=== PATIENT | male | born 1930 | race Caucasian/White ===

== ENCOUNTER 2017-03-17 17:24 | Inpatient (IN) | payer OTHER ==
[~2017-03-17] VITALS: Ht 177.8 cm; Wt 84.4 kg
--- NOTE | ~2017-03-17 | EKG ---
[address] [address] ELECTROCARDIOGRAM REPORT Name: CORINNE MENDEZ Room #: 438-P ADM IN M.R.#: [id number] Admission: 03/17/17 Attend Phys: Joshua Casey MD Discharge: Date of : [birth year] Report #: [id number] THIS REPORT FOR: //name// [facility] ED Test Date: 2017-03-17 Test Time: 18:48:23 Pat Name: CORINNE MENDEZ Department: Room: [facility] Gender: M Auditor/Quality: Jossue CHA : 1930 Requested By: Hola Allen Order Number: [id number] MD: Remigio Lazcano Measurements Intervals [place] Rate: 76 P: DC: QRS: 92 QRSD: 105 T: 2 QT: 415 QTc: 467 Interpretive Statements Atrial fibrillation Left posterior fascicular block Borderline low voltage, extremity leads Compared to ECG 07/03/2014 14:18:12 Left posterior fascicular block now present Right-axis deviation no longer present Electronically Signed On 03-20-2017 22:04:34 CDT by Remigio Lazcano [email or web address] <ELECTRONICALLY SIGNED> By: Remigio Lazcano MD 03/20/17 2204 47 47 Remigio Lazcano MD /EPI
--- NOTE | ~2017-03-17 | S ---
[facility] [place] [address] SURGICAL PATH RPT PROCEDURE Name: CORINNE MENDEZ Room #: 438-P DIS IN M.R.#: [id number] Admission: 03/17/17 Date of : [birth year] Discharge: 03/21/17 Report #: [id number] Path Case #: [id number] PATHOLOGY REPORT COLLECTION DATE: 03/19/2017 RECEIVED DATE: 03/21/2017 SUBMITTING PHYS: Dr. Foster Rajput OTHER PHYS: Dr. Joshua Mroales SPECIMEN(S) RECEIVED: A.Bx gastritis * * * * * * * * * * * * FINAL DIAGNOSIS: Gastric mucosa, gastritis, endoscopic biopsy: - Mild chronic active gastritis with features of reactive gastropathy. - Negative for intestinal metaplasia or atrophy. - Negative for Helicobacter pylori. COMMENT: Helicobacter pylori immunohistochemical stain performed on block A1-negative. (IUV:mml; 03/22/2017) PATHOLOGIST: Maribel Blandon M.D. REPORT ELECTRONICALLY SIGNED BY: Maribel Blandon M.D. DATE/TIME: 03/22/2017 14:59 * * * * * * * * * * * * GROSS PATHOLOGY: Received in formalin labeled "BERNARDO Kumar gastritis," and additionally labeled on the requisition as "R/O H. pylori", are two segments of cohen soft tissue measuring 0.8 x 0.8 x 0.4 cm in aggregate dimensions and ranging from 0.8 to 1.3 cm in maximum dimension. The specimen is submitted entirely in cassette A1. (TSD; 03/21/2017) CLINICAL HISTORY: Hernia, GI bleed INITIAL CPT CODE(S): A; 11739, 29177 [facility] [address] [place] [address] SURGICAL PATH RPT PROCEDURE Name: CORINNE MENDEZ Room #: 438-P [facility] IN ..#: [id number] Admission: 03/17/17 Date of : [birth year] Discharge: 03/21/17 Report #: [id number] Path Case #: [id number] Professional services performed by [facility] at [address], [place] [address] Technical services performed by [facility] at [address] [place] [address], [place] [address]. [facility] [address] [place] [address] PHONE: [phone] DIRECTOR: Nick Lange M.D. * * * END OF REPORT * * *
--- NOTE | ~2017-03-17 | P ---
[facility] [place] [address] PROCEDURE REPORT Name: JOIJOLENECORINNE Room #: 438-P [facility] IN ..#: [id number] Admission: 03/17/17 Attend Phys: Joshua Casey MD Discharge: 03/21/17 Date of : [birth year] Report #: [id number] THIS REPORT FOR: //name// CC: Tammy Casey BRIEF HISTORY: The patient is an 86-year-old male who presented with melanotic stools and anemia requiring transfusion. He had been having black stools for about 6 weeks. PREOPERATIVE DIAGNOSIS: Upper gastrointestinal bleeding. POSTOPERATIVE DIAGNOSES: 1. 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 2. Small hiatus hernia. 3. Diffuse erythematous gastritis. MEDICATIONS: Deep sedation with propofol per anesthesia. SPECIMEN: Biopsies of antrum, rule out H. pylori. ESTIMATED BLOOD LOSS: 3 mL related to procedure. PROCEDURE: EGD with hemostasis and biopsy. FINDINGS: Prior to propofol sedation, procedure of upper endoscopy discussed with the patient as well as potential risks and its complications. He indicates he understands and desires to proceed. DESCRIPTION OF PROCEDURE: With the patient in left lateral decubitus position, the Fuji video endoscope was inserted in the cervical esophagus under direct vision without difficulty. Examination of this organ through its entire length revealed normal esophageal mucosa down the squamocolumnar junction. Squamocolumnar junction was normal. Just beyond that was a small, about 2-3 cm sliding type hiatus hernia. Mucosa in the hernia was normal. Scope was advanced in the stomach, was examined on end view as well as retroflexed views. There was a moderately large dark looking clot high in the fundus of the stomach. There was also some bloody liquidy material. The stomach mucosa was coated with a patchy layer of red blood. However, no clots were seen. Exposed vessels or spreading vessels were not seen when the stomach was examined on end view as well as retroflexed views. The scope was advanced in the distal stomach and again, it was coated with blood. Active bleeding was not seen. The pylorus is unremarkable. Duodenal bulb and immediate postbulbar duodenum was covered with red blood. We then irrigated the duodenal bulb and postbulbar duodenum. The blood cleared away and no mucosal lesions were seen. The mucosa was normal. We withdrew the scope back in the stomach and then underwent a tedious process [address] [address] PROCEDURE REPORT Name: CORINNE MENDEZ Room #: 438-P [id number] Admission: 03/17/17 Attend Phys: Joshua Casey MD Discharge: 03/21/17 Date of : [birth year] Report #: [id number] of washing the gastric mucosa with water jet and suctioning away water. The clot in the fundus of stomach got a little bit smaller, it was too large to aspirate through the scope. Finally, in the retroflexed position, we saw an oozing lesion in the fundus of the stomach that was best seen in the retroflexed position. This was treated with BICAP probe and immediately, the bleeding stopped. On the opposite wall, there was a red thick adherent clot, it was about 5 or 6 mm, but it was fairly prominent. Active bleeding was not seen. It was felt that this clot was over another lesion and this area was cauterized as well with good hemostasis. We then inspected the stomach and duodenum further pass and no additional bleeding sites were seen. Biopsies obtained of the antrum and scope withdrawn. The patient tolerated the procedure well. DISPOSITION: The patient with upper GI bleeding. Active site was seen. I am suspicious that he potentially had additional sites. He has a loud heart murmur, may have vascular ectasias. I did not see a definite ectatic vessel, but presumed that was the etiology of his oozing today. We will continue PPI. We will also add sucralfate for his gastritis. Advance diet to clear liquids. Ideally, withhold anticoagulation for several days if possible. <ELECTRONICALLY SIGNED> By: Foster Rajput MD 03/22/17 1547 0952 1233 Foster Rajput MD /nt
[~2017-03-17 17:24] MED LIST: ASPIR-TRIN325 MG PO; ASPIRIN EC325 M1 PO; ATENOLOL 50MG T50 M1 PO; B12 PO; CALCIUM 600 +1 EAC5 PO; CALCIUM 600 +1 EAC8 PO; CALCIUM 600 +1 EAC9 PO; CHELATED IRON PO; CIPRO500 MG PO; COLACE100 MG PO; COUMADIN 2 MG TA2 M1 PO; COUMADIN 2.5MG2.5 M1 PO; COUMADIN 4 MG TA4 M1 PO; COUMADIN7.5 MG PO; ENOXAPARIN30 MG/0.1 SUBQ; ESZOPICLONE3 MG PO; FISH OIL 1,0001 EAC5; FISH OIL 1,0001 EAC5 PO; FISH OIL 1,001000 M2 PO; FLECAINIDE ACET50 M2 PO; FLOMAX0.4 MG PO; FLORASTOR250 MG PO; FLUMADINE100 MG; FOLIC ACID PO; GABAPENTIN 100100 MG PO; GLUCOSAMINE CH1 EAC7 PO; GLUCOSAMINE HC500 MG PO; IRON325; IRON325 PO; KEFLEX500 MG PO; LANSOPRAZOLE30 MG PO; LASIX 40 MG TAB40 M2 PO; LOPRESSOR PO; MAXFE CAPLET1 EACH PO; MELOXICAM15 MG PO; METOCLOPRAMIDE 55 M1 PO; MIRALAX255 GM PO; MOBIC15 MG PO; NORCO 5-325 TA1 EACH PO; POTASSIUM20 PO; PREVACID PO; REGLAN 10 MG TA10 MG PO; SIMVASTATIN20 MG PO; TOPROL XL50 MG PO; TRAMADOL 50 MG50 MG PO; TYLENOL325 MG PO; VITAMIN B-12500 MCG PO; VITAMIN D1000 UNI1 PO; VITAMIN D400 UNIT PO; VITAMIN E200 UNI4 PO; VITAMIN E400 UNIT PO; ZOCOR20 MG PO
[2017-03-17 17:45] VITALS: BP 124/51
[2017-03-17 18:25] LABS: BASOPHILS 0.8 % (0.0-2.0); HEMATOCRIT 22.9 % (42.0-52.0); HEMOGLOBIN 7.6 gm/dL (14.0-18.0); MCH 31.3 pg (26.0-34.0); MCHC 33.4 g/dL (28.0-37.0); MCV 93.9 fL (80.0-100.0); PLATELET COUNT 117 thou/uL (150-400); POLYS 73.2 % (36.0-66.0); RBC 2.44 mil/uL (4.50-6.00); RDW 16.4 % (10.5-14.5); WBC 5.5 thou/uL (4.0-11.0)
[2017-03-17 18:26] LABS: CALCIUM 8.4 mg/dL (8.5-10.1); CREATININE 1.1 mg/dL (0.7-1.3); MANUAL DIFF NO; POTASSIUM 3.8 mmol/L (3.5-5.1)
[2017-03-17 18:32] LABS: ALBUMIN 3.3 g/dL (3.4-5.0); APTT 33.7 Seconds (24.5-32.8); INR 2.4; PROTIME 24.6 Seconds (9.3-11.4); TOTAL BILIRUBIN 0.4 mg/dL (<0.1-1.0); TOTAL PROTEIN 6.6 g/dL (6.4-8.2)
[2017-03-17 19:52] VITALS: BP 114/56
[2017-03-17 20:09] VITALS: BP 114/56
[2017-03-17 20:23] VITALS: BP 107/49
[2017-03-17 20:45] VITALS: BP 103/69
[2017-03-18 00:23] LABS: HEMOGLOBIN 6.6 gm/dL (14.0-18.0)
[2017-03-18 00:30] LABS: HEMATOCRIT 19.4 % (42.0-52.0)
[2017-03-18 03:05] VITALS: BP 94/59; BP 96/41
[2017-03-18 06:06] LABS: HEMATOCRIT 21.7 % (42.0-52.0); HEMOGLOBIN 7.5 gm/dL (14.0-18.0)
[2017-03-18 06:15] VITALS: BP 105/42; BP 119/59
[2017-03-18 06:20] LABS: PROTIME 20.1 Seconds (9.3-11.4)
[2017-03-18 08:00] VITALS: BP 105/56
[2017-03-18 12:22] LABS: HEMATOCRIT 25.9 % (42.0-52.0); HEMOGLOBIN 8.9 gm/dL (14.0-18.0)
[2017-03-18 16:00] VITALS: BP 110/52
[2017-03-18 18:16] LABS: HEMATOCRIT 25.4 % (42.0-52.0); HEMOGLOBIN 8.6 gm/dL (14.0-18.0)
[2017-03-18 20:08] VITALS: BP 117/65
[2017-03-19 04:16] VITALS: BP 128/74
[2017-03-19 05:12] LABS: HEMATOCRIT 26.8 % (42.0-52.0); HEMOGLOBIN 9.2 gm/dL (14.0-18.0); MCH 31.7 pg (26.0-34.0); MCHC 34.4 g/dL (28.0-37.0); MCV 92.2 fL (80.0-100.0); RBC 2.91 mil/uL (4.50-6.00); RDW 15.5 % (10.5-14.5)
[2017-03-19 05:24] LABS: INR 1.2; PROTIME 12.3 Seconds (9.3-11.4)
[2017-03-19 05:33] LABS: CALCIUM 8.1 mg/dL (8.5-10.1); CREATININE 0.8 mg/dL (0.7-1.3); POTASSIUM 3.6 mmol/L (3.5-5.1); TOTAL PROTEIN 6.1 g/dL (6.4-8.2)
[2017-03-19 08:00] VITALS: BP 119/58
[2017-03-19 16:01] VITALS: BP 104/48
[2017-03-19 19:38] VITALS: BP 109/53
[2017-03-20 04:47] VITALS: BP 115/65
[2017-03-20 06:04] LABS: HEMATOCRIT 24.8 % (42.0-52.0); HEMOGLOBIN 8.5 gm/dL (14.0-18.0); MCH 31.8 pg (26.0-34.0); MCHC 34.1 g/dL (28.0-37.0); MCV 93.3 fL (80.0-100.0); RBC 2.66 mil/uL (4.50-6.00); RDW 16.3 % (10.5-14.5); WBC 5.6 thou/uL (4.0-11.0)
[2017-03-20 08:52] VITALS: BP 117/63
[2017-03-20 16:50] VITALS: BP 104/50
[2017-03-20 19:52] VITALS: BP 104/50
[2017-03-21 04:30] VITALS: BP 115/65
[2017-03-21 06:20] LABS: HEMATOCRIT 24.3 % (42.0-52.0); HEMOGLOBIN 8.1 gm/dL (14.0-18.0); MCH 31.3 pg (26.0-34.0); MCHC 33.5 g/dL (28.0-37.0); MCV 93.3 fL (80.0-100.0); RBC 2.6 mil/uL (4.50-6.00); RDW 15.7 % (10.5-14.5)
[2017-03-21 08:00] VITALS: BP 105/61
[2017-03-21] MEDS ORDERED: CARAFATE 1 GM TA1 G1 PO (12:07)
[2017-03-21] MEDS ORDERED: PROTONIX40 M1 PO (12:07)
[2017-03-21 12:27] VITALS: BP 105/61
== END 2017-03-21 14:12 | disposition home or self-care (01) | DRG 378 ==
LOC: ER 17:24 → EROBS 19:30 → 4S 19:30
PROVIDERS: Emergency Medicine; Internal Medicine Gastroenterology; Nurse Practitioner Acute Care; Specialist
PROC: 30233N1 Transfusion of Nonautologous Red Blood Cells into Peripheral Vein, Percutaneous Approach (ICD-10-PCS; 2017-03-18)
PROC: 0DB68ZX Excision of Stomach, Via Natural or Artificial Opening Endoscopic, Diagnostic (ICD-10-PCS; principal; 2017-03-19)
DX: K55.21 Angiodysplasia of colon with hemorrhage (principal); D62 Acute posthemorrhagic anemia; I10 Essential (primary) hypertension; N40.0 Benign prostatic hyperplasia without lower urinary tract symptoms; H91.90 Unspecified hearing loss, unspecified ear; M19.90 Unspecified osteoarthritis, unspecified site; Z96.653 Presence of artificial knee joint, bilateral; K29.70 Gastritis, unspecified, without bleeding; K44.9 Diaphragmatic hernia without obstruction or gangrene; I48.2 Chronic atrial fibrillation; E78.5 Hyperlipidemia, unspecified; I35.0 Nonrheumatic aortic (valve) stenosis; E78.00 Pure hypercholesterolemia, unspecified; G62.9 Polyneuropathy, unspecified; Z98.42 Cataract extraction status, left eye; Z98.41 Cataract extraction status, right eye; Z90.49 Acquired absence of other specified parts of digestive tract; Z85.828 Personal history of other malignant neoplasm of skin; Z79.899 Other long term (current) drug therapy; Z82.49 Family history of ischemic heart disease and other diseases of the circulatory system
CPT/HCPCS: 10100; 62110; 62900; 70005

== ENCOUNTER → 2017-07-04 | Outpatient (CLI) | payer OTHER ==
[~2017-07-04] VITALS: Ht 177.8 cm; Wt 81.6 kg
[~2017-07-04] MED LIST changes: +CARAFATE 1 GM TA1 G1 PO; +COUMADIN 5 MG TA5 M1 PO; +GLUCOSAMINE &1 EACH PO; +PANTOPRAZOLE SO40 M1 PO; +PROTONIX40 M1 PO
--- NOTE | ~2017-07-04 | S ---
[facility] [place] [address] SURGICAL PATH RPT PROCEDURE Name: ANDREATYLER Seth Room #: REG [facility].#: [id number] Admission: 07/04/17 Date of : [birth year] Discharge: Report #: [id number] Path Case #: [id number] PATHOLOGY REPORT COLLECTION DATE: 07/04/2017 RECEIVED DATE: 07/04/2017 SUBMITTING PHYS: Dr. Foster Rajput OTHER PHYS: Dr Tammy Alex SPECIMEN(S) RECEIVED: A.Colon polyp at 50 cm * * * * * * * * * * * * FINAL DIAGNOSIS: Polyp, at 50 cm, endoscopic biopsy: - Tubular adenoma. - Negative for high-grade dysplasia. (IUV:uriel; 07/05/2017) PATHOLOGIST: Maribel Blandon M.D. REPORT ELECTRONICALLY SIGNED BY: Maribel Blandon M.D. DATE/TIME: 07/05/2017 13:05 * * * * * * * * * * * * GROSS PATHOLOGY: Received in formalin labeled "Tyler Mendez, polyp at 50 cm," are 4 segments of cohen soft tissue measuring 1.4 x 0.8 x 0.3 cm in aggregate dimensions and ranging from 0.1 to 0.4 cm in maximum dimension. The specimen is submitted entirely in cassette A1. (TSD; 07/04/2017) CLINICAL HISTORY: Pre-OP DX: Anemia, positive Hemoccult Post-OP DX: Colon polyp, diverticulosis INITIAL CPT CODE(S): A; 62086 Professional services performed by [facility] at [facility] [address], [place] [address] Technical services performed by [facility] at [address] [place] [address]. [facility] [address] [place] [address] SURGICAL PATH RPT PROCEDURE Name: TYLER MENDEZ Room #: IRIS Brantley#: [id number] Admission: 07/04/17 Date of : [birth year] Discharge: Report #: [id number] Path Case #: [id number] [facility] [id number] [address] PHONE: [phone] DIRECTOR: Nick Lange M.D. * * * END OF REPORT * * *
--- NOTE | ~2017-07-04 | P ---
[facility] [place] [address] PROCEDURE REPORT Name: JOIJOLENECORINNE Room #: REG [facility]#: [id number] Admission: 07/04/17 Attend Phys: Foster Rajput MD Discharge: Date of : [birth year] Report #: [id number] THIS REPORT FOR: //name// CC: Tammy Rajput DATE OF SERVICE: 07/04/2017 BRIEF HISTORY: The patient is an 86-year-old male who is anticoagulated for atrial fibrillation and who had an upper GI bleed and was treated here this past March. 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 He remains mildly anemic with hemoglobin in the 12 range and he does have Hemoccult positive stools. PREOPERATIVE DIAGNOSES: Anemia and Hemoccult positive stools, on anticoagulation, history of gastrointestinal bleeding. He also uses meloxicam. POSTOPERATIVE DIAGNOSES: 1. Moderate diffuse gastritis, chronic. 2. Small hiatus hernia. MEDICATIONS: Deep sedation with propofol per Anesthesia. SPECIMEN: None. ESTIMATED BLOOD LOSS: None. PROCEDURE: EGD. FINDINGS: Prior to propofol sedation, procedure of upper endoscopy discussed with the patient as well as potential risks and its complications. He indicates he understands and desires to proceed. DESCRIPTION OF PROCEDURE: With the patient in left lateral decubitus position, the [employer] video endoscope was inserted in the cervical esophagus under direct vision without difficulty. Examination of this organ through its entire length revealed normal esophageal mucosa down to the squamocolumnar junction. The squamocolumnar junction was inspected and noted to be within normal limits. Intermittently a small hiatus hernia was seen. Mucosa in the hernia was within normal limits. Scope was advanced in the stomach, was examined on end view as well as retroflexed views. There was a pattern of diffuse gastritis. However, no ulcers or erosions were seen. The patient takes meloxicam, but no ulcers were seen. Upon retroflexion, no abnormalities were seen. The antrum and pylorus is unremarkable. The duodenal bulb and post-duodenal sweep down about [facility] [address] [place] [address] PROCEDURE REPORT Name: CORINNE MENDEZ Room #: REG [facility].#: [id number] Admission: 07/04/17 Attend Phys: Foster Rajput MD Discharge: Date of : [birth year] Report #: [id number] the fourth portion was normal. No blood was seen. Vascular ectasias were not seen on today's exam. At that point, the scope was slowly withdrawn and careful circumferential views confirmed the above finding. It is also noted that biopsies in March were negative for H. pylori and those were not repeated today. CONDITION OF THE PATIENT UPON DISCHARGE: Following procedure, the patient drowsy and prepared for colonoscopy. INSTRUCTIONS TO THE PATIENT AND FAMILY AT THE TIME OF DISCHARGE: No bleeding lesions were seen. Potential source of blood loss were not seen. Vascular ectasias were not seen. We will proceed with colonoscopy. <ELECTRONICALLY SIGNED> By: Foster Rajput MD 07/05/172015 1051 1818 Foster Rajput MD /nt
--- NOTE | ~2017-07-04 | P ---
[facility] [place] [address] PROCEDURE REPORT Name: JOIJOLENECORINNE Room #: REG [facility]#: [id number] Admission: 07/04/17 Attend Phys: Foster Rajput MD Discharge: Date of : [birth year] Report #: [id number] THIS REPORT FOR: //name// CC: Tammy Rajput DATE OF SERVICE: 07/04/2017 BRIEF HISTORY: The patient is an 86-year-old male who had a GI bleed this summer. He has Hemoccult positive stools and is mildly anemic. He has been on anticoagulation. PREOPERATIVE DIAGNOSES: Anemia and Hemoccult-positive stools. POSTOPERATIVE DIAGNOSES: 1. A 4 mm sessile polyp, 50 cm. 2. Moderate sigmoid diverticulosis coli. 3. Anal skin tags. MEDICATIONS: Deep sedation with propofol per Anesthesia. SPECIMEN: Polyp from 50 cm. ESTIMATED BLOOD LOSS: 3 mL. PROCEDURE: Colonoscopy to cecum and terminal ileum with biopsy. FINDINGS: Prior to propofol sedation, procedure of colonoscopy discussed with the patient as well as potential risks and its complications. He indicates he understands and desires to proceed. DESCRIPTION OF PROCEDURE: With the patient in left lateral decubitus position, digital examination was completed, revealed no abnormalities. Subsequently, the [employer] video colonoscope was introduced in the rectum, advanced under direct vision to the cecum. Done with minimal difficulty. The cecum was identified by the ileocecal valve and the appendiceal orifice. I was able to visualize the distal segment of the terminal ileum, which was inspected and noted to be unremarkable. At that point, the scope was slowly withdrawn and careful circumferential views were obtained. Upon slow withdrawal of the scope, the prep was noted to be excellent. Mucosa within normal limits, normal vascular pattern, normal light reflex. As we withdrew the scope, the mucosa was normal. Vascular ectasias or bleeding lesions were not seen. No blood was seen during this examination. As we withdrew the scope, the mucosa was normal until we reached the descending colon and at 50 cm a 4 mm sessile polyp was seen and [facility] [address] [place] [address] PROCEDURE REPORT Name: CORINNE MENDEZ Room #: REG [facility].#: [id number] Admission: 07/04/17 Attend Phys: Foster Rajput MD Discharge: Date of : [birth year] Report #: [id number] removed with multiple biopsies. Scope was further withdrawn and no additional polyps were seen. However, he was noted to have moderate to severe diverticular disease of the sigmoid colon without endoscopic evidence of diverticulitis. Scope was withdrawn in the rectum and no abnormalities were seen, but upon retroflexion anal skin tag was seen. Scope was withdrawn. The patient tolerated the procedure well. CONDITION OF THE PATIENT UPON DISCHARGE: Following procedure, the patient drowsy, arousable and conversant, will be discharged home when fully ambulatory. INSTRUCTIONS TO THE PATIENT AND FAMILY AT THE TIME OF DISCHARGE: No bleeding lesions or lesions potentially responsible for blood loss were identified today. A source of his anemia and Hemoccult positive stools is not entirely clear. I will recommend continue to monitor hemoglobin. He may resume his anticoagulation today. If he has issues with anemia or suspected ongoing gastrointestinal bleeding, and M2A capsule study would be the next step. Last colonoscopy was more than 10 years ago. Withdrawal time from the cecum was 9 minutes and 53 seconds. <ELECTRONICALLY SIGNED> By: Foster Rajput MD 07/05/172015 1114 1834 Foster Rajput MD /nt
[2017-07-04 09:53] LABS: INR 1.1; PROTIME 11.7 Seconds (9.3-11.4)
== END | disposition home or self-care (01) ==
LOC: GI 09:02
PROVIDERS: Anesthesiology
DX: D12.5 Benign neoplasm of sigmoid colon (principal); D64.9 Anemia, unspecified; K57.30 Diverticulosis of large intestine without perforation or abscess without bleeding; K64.4 Residual hemorrhoidal skin tags; K29.70 Gastritis, unspecified, without bleeding; K44.9 Diaphragmatic hernia without obstruction or gangrene; I10 Essential (primary) hypertension; I48.91 Unspecified atrial fibrillation; G47.33 Obstructive sleep apnea (adult) (pediatric); K21.9 Gastro-esophageal reflux disease without esophagitis; I73.9 Peripheral vascular disease, unspecified; M19.90 Unspecified osteoarthritis, unspecified site; Z90.49 Acquired absence of other specified parts of digestive tract; Z98.890 Other specified postprocedural states